=== PATIENT | male | born 1945 | race Caucasian/White ===

== ENCOUNTER → 2017-10-21 | Outpatient (CLI) | payer MEDICARE ==
[~2017-10-21] MED LIST: ASPI-587 PO; CIPR-225 PO; CIPR500T78 PO; HYDR-3454 PO; HYDR-3720 PO; LISI10TA2 PO; METR500T PO; PHEN200T27 PO
--- NOTE | 2017-10-21 11:47 | Diagnostic Imaging Report ---
INDICATION: Productive cough. TIME OF EXAM: 11:59 a.m. COMPARISON: No prior studies are available for comparison. FINDINGS: The heart size is normal. The pulmonary vascularity is unremarkable. The lungs are clear. No infiltrate, effusion or pneumothorax is detected. Postop changes in the lower cervical spine are noted. IMPRESSION: No acute cardiopulmonary process is detected. Dictated by: Dictated on workstation # [id number]
== END ==
LOC: RAD 11:29
PROVIDERS: ATTEND Family Medicine
DX: R05 Cough (principal)
CPT/HCPCS: 71046